=== PATIENT | female | born 1990 | race African-American/Black ===

== ENCOUNTER 2021-01-29 12:01 | Emergency (ER) | payer BC ==
[~2021-01-29] VITALS: Ht 157.5 cm; Wt 67.1 kg
[2021-01-29] MEDS ORDERED: NORCO5 PO (13:44)
[2021-01-29 14:00] VITALS: BP 103/56
[2021-02-01] MEDS ORDERED: NORCO5 PO (08:25)
== END 2021-01-29 14:00 | disposition home or self-care (01) ==
LOC: ER 12:01
DX: O03.9 Complete or unspecified spontaneous abortion without complication (principal); D27.1 Benign neoplasm of left ovary; R10.2 Pelvic and perineal pain

== ENCOUNTER 2021-02-05 10:24 | Day surgery (SDC) | payer BC ==
[~2021-02-05] VITALS: Ht 157.5 cm; Wt 63.5 kg
--- NOTE | ~2021-02-05 | O ---
[facility] [place] [address] OPERATIVE REPORT Name: JOAQUIN HERRERA Room #: 150-7 [facility]..#: [id number] Admission: 02/05/21 Attend Phys: Shayla Matos DO Discharge: Date of : 89 Report #: [id number] THIS REPORT FOR: cc: MORTEZA LEE Physician not on staff Shayla Matos DO ~ DATE OF SERVICE: 02/05/2021 PREOPERATIVE DIAGNOSES: 1. Pelvic mass. 2. Pelvic pain. POSTOPERATIVE DIAGNOSES: 1. Pelvic mass. 2. Pelvic pain. 3. Left ovarian dermoid tumor. SURGEON: Shayla Matos DO ANESTHESIA: General. INTRAVENOUS FLUIDS: 600 mL. URINE OUTPUT: 65 mL. ESTIMATED BLOOD LOSS: 10 mL. SPECIMENS: None. PATHOLOGY: Left ovary, dermoid tumor. DESCRIPTION OF PROCEDURE: The patient was taken to the operating room where general anesthesia was administered and found to be adequate. She was then prepped and draped in normal sterile fashion in dorsal lithotomy position. A Espinal catheter was placed in the patient's bladder. The bladder was drained of urine. A weighted speculum was placed in the patient's vagina. The anterior lip of the cervix was identified and grasped with a single tooth tenaculum. The uterus was then gently sounded to approximately 12 cm. A uterine manipulator was then placed through the cervix, gently advanced into the uterus and inflated. The single tooth tenaculum was then removed from the patient's cervix and the weighted speculum was removed from the patient's vagina. Sterile gloves were changed and attention was then turned to the patient's abdomen. A 5 mm infraumbilical incision was made with a scalpel. A 5 mm trocar was passed through this incision under direct visualization of laparoscope. No insertional trauma was identified. A pneumoperitoneum was allowed to accumulate using carbon dioxide gas. Once an adequate amount of insufflation was achieved the [address] [address] OPERATIVE REPORT Name: JOAQUIN HERRERA TOSHIA Room #: 150-7 [facility].#: [id number] Admission: 02/05/21 Attend Phys: Shayla Matos, Discharge: Date of : 89 Report #: [id number] patient was then placed in Trendelenburg position. The bowel was swept cephalad. A large ovarian mass was noted. A second trocar was then placed in the patient's left lower quadrant. An incision was made in the left lower quadrant with a scalpel and the trocar was placed through the incision. No insertional trauma was identified. A laparoscopic needle was placed through the left lower quadrant trocar into the ovarian mass and a large amount of thick yellow fluid was drained from the mass to decompress it. Once it was decompressed, a third trocar was placed in the patient's abdomen approximately 2 cm above the symphysis pubis in the midline. An 11 mm trocar was passed through this incision under direct visualization of laparoscope. No insertional trauma was identified. The ovary and mass were grasped with an atraumatic grasper and retracted medially. The LigaSure device was then used to transect the infundibulopelvic ligament. Excellent hemostasis was noted in the ligament. An Endopouch was then placed through the suprapubic incision and the ovary and mass were placed in the Endopouch. The suprapubic incision was extended approximately 1 cm in each direction. The fascia was nicked in the midline and extended with digits. The muscles were in the midline as well as the peritoneum. The Endopouch was then removed through the suprapubic incision without complication. The peritoneum and muscle were reapproximated using 2-0 Vicryl. The fascia was reapproximated with 2-0 Vicryl. The subcutaneous tissue was irrigated. Bovie cautery was used to obtain hemostasis. Re-insufflation of the patient's abdomen was performed. The laparoscope was placed again through the umbilical incision. A survey of the patient's pelvis revealed a hemostatic pedicle. Small amount of fluid noted in the posterior cul-de-sac. Irrigation was performed. All irrigant as well as blood and fluid were removed from the patient's pelvis. All instruments were then removed from the patient's pelvis. All incisions were closed with 4-0 Monocryl. Excellent hemostasis was noted. This was done after the pneumoperitoneum was allowed to escape. The uterine manipulator was removed. Again, hemostasis was noted at the tenaculum site. The patient tolerated the procedure well. Sponge, lap and needle counts were reported as correct. The patient was taken to the recovery room in stable condition. By: [id number] Shayla Matos DO /billy
[~2021-02-05 10:24] MED LIST: NORCO5 PO
[2021-02-05 11:30] VITALS: BP 102/57
[2021-02-05 11:47] LABS: HEMATOCRIT 37.1 % (37.0-47.0); HEMOGLOBIN 12.8 gm/dL (12.0-15.0)
[2021-02-05] MEDS ORDERED: IBUPROFEN 600600 M1 PO (13:32)
[2021-02-05 14:14] VITALS: BP 102/57
--- NOTE | 2021-02-08 10:07 | PATH ---
[facility] [address] [place] [address] PATHOLOGY RPT PROCEDURE Name: J CARLOS PEREZ Room #: DEP [facility] M.R.#: [id number] Admission: 02/05/21 Date of : 89 Discharge: 02/05/21 Report #: [id number] Path Case #: [id number] [facility] Accession Number: [id number] . 01 Material submitted: . ovary - LEFT OVARY. Modifiers: left . 01 Clinical history: . PELVIS MASS LAPARSCOPIC OPHORECTOMY . 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 - Negative for malignancy. - 2.5 cm fallopian tube with fimbria showing cautery and reactive changes. LBQ 02/07/2021 1431 Local . 02 Comment: Examination shows mature keratinous epithelium, focal glandular epithelium, cartilage, hair, as well as bone marrow elements consistent with mature cystic teratoma. Immature elements, or features of malignancy are not identified. (IUV/db; 02/07/2021) . 02 Electronically signed: . Soraya Dupree MD, Pathologist NPI- [id number] . 01 Gross description: . The specimen is received in formalin, labeled "J Carlos Perez, left ovary". Received is a 151 g previously ruptured cystic ovary measuring 8.3 x 6.6 x 5.5 cm in greatest mentions. The serosal surface is white-castro to pink-pastor and smooth in appearance with an area of rupture measuring 3.9 x 1.7 cm. A possible fimbriated fallopian tube is identified measuring 2.5 cm in length by 0.4 cm in diameter, which is adhesed to the specimen. Sectioning reveals two unilocular cystic structures measuring 1.5 and 5.8 cm filled with pale-castro, greasy, friable material admixed with a large amount of hair. There is an area of bright yellow lobulated tissue identified measuring 4.9 x 3.5 x 3.5 cm, which displays several areas of calcification. The cyst farias are smooth to wrinkled in appearance. The cyst farias are smooth to slightly roughened in appearance with no grossly distinct nodules or lesions. Sectioning reveals possible pale castro, normal ovarian stroma. The specimen is submitted representatively as follows: . A1 entire possible fallopian tube, to include fimbria A2 possible normal ovarian stroma [address] [address] PATHOLOGY RPT PROCEDURE Name: J CARLOS PEREZLLE Room #: DEP [facility] Smith#: [id number] Admission: 02/05/21 Date of : 89 Discharge: 02/05/21 Report #: [id number] Path Case #: [id number] A3-A5 [employer] sections of cyst wall A6 [employer] sections of lobulated tissue areas of calcification, following decalcification. (CAA; 02/06/2021) QAC/QAC 02/06/2021 1100 Local . 02 Pathologist provided ICD-10: D27.1 . 02 CPT . 987789, [id number] Specimen Comment: A courtesy copy of this report has been sent to [phone] Specimen Comment: Report sent to Specimen Comment: A duplicate report has been generated due to demographic updates. Performed at: 01 [facility] [address], [place], [place] [id number] MD Eladio Carreon MD Phone: [phone] Performed at: [address] [facility] [address] [id number] MD Soraya Dupree MD Phone: [phone]
== END 2021-02-05 15:10 | disposition home or self-care (01) ==
LOC: OR 10:24 → TBA 10:30 → OR 11:02
PROVIDERS: ATTEND Obstetrics & Gynecology
DX: R10.2 Pelvic and perineal pain (principal); D27.1 Benign neoplasm of left ovary; F17.210 Nicotine dependence, cigarettes, uncomplicated; Z98.890 Other specified postprocedural states; Z79.899 Other long term (current) drug therapy; Z20.822 Contact with and (suspected) exposure to COVID-19
CPT/HCPCS: 50010; 50101; 50386; 50400; 50455; 50555; 51489; 52265; 53307; 53312; 54118; 56524; 56526; 58574; 58586; 58683; 58910; 62110; 62900; 70005